=== PATIENT | female | born 1955 | race Caucasian/White ===

== ENCOUNTER 2017-12-09 16:57 | Inpatient (IN) ==
[2017-12-09 17:23] VITALS: BMI 28.2
--- NOTE | 2017-12-09 17:48 | History & Physical Report ---
History of Present Illness Date: 12/09/17 Chief complaint: N/V, weakness, syncope HPI: Guerda Morrissey is a 61 y/o "brittle" type 1 diabetic who was diagnosed about 15 years ago. She has never been in DKA before. She typically manages her diabetes by assessing carb counts per meal, and her usual dose is 20 units of insulin with meals and 50 units of Lantus at night. Her last A1c was "terrible" b/c her diabetes is out of control. 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 She began noticing increased thirst and frequent urination a few days ago, and she knew that she was starting to get in trouble. She continued on her usual insulin regimen. In the evening of 12/08/17, she became significantly sicker with n/v x 7 times. Her acid reflex has been out of control with all of her recent vomiting. She also has a sore throat from the vomiting. She was extremely dizzy and weak, and felt like she'd pass out. She developed photosensitivity without a headache. She denies having fever, chills, cough/congestion, abdominal pain, constipation, diarrhea, or painful urination. She denies any rashes or known skin infection. She denies shortness of breath. She denies palpitations or heart pain (but her chest hurts secondary to GERD). She denies any unusual bleeding/bruising. Her roommate took her to the [place] ED on 12/09/17. Labs are as follows: Na 128, K 5.4, Cl 93, gap 4, BUN 33, Cr 1.8; WBC 21, hgb 14.8, plt 286; accucheck was "high"; Hgb A1c 11.6% (higher than previous A1c per pt report); Cholesterol 349, trig 342, LDL 59, LDL 223, VLDL 68; lipase 47; urine with 3+ glucose, 3+ ketones, no leuk and no nitrite. CXR was unremarkable. They were able to infuse about 500 mL of fluids and insulin 10 units in a small peripheral site before the vein infiltrated, and then an IO was inserted into her right humerus. Dr. Ray was contacted and the patient was transferred to [facility] CCU for inpatient admission for DKA. On arrival to [facility] her blood glucose was detectable at 467. A midline was successfully inserted into her left arm, and the DKA protocol was initiated. Review of Systems All systems PM: 10-point ROS was reviewed, no additional remarkable complaints except - Constitutional Constitutional: Present: as per HPI - EENMT Eyes: Present: requires corrective lenses Mouth/Throat: Present: sore throat - Cardiovascular Cardiovascular: Present: as per HPI Vascular: Absent: pedal edema - Respiratory Respiratory: Present: as per HPI - Gastrointestinal Gastrointestinal: Present: as per HPI - Genitourinary Genitourinary: Present: as per HPI Menstruation: other (has never had estrogen to ovulate) - Musculoskeletal Musculoskeletal: Present: back pain (chronic) - Integumentary/Breasts Integumentary: Present: as per HPI - Neurological Neurological: Present: as per HPI, numbness (plantar surfaces both feet) - Psychiatric Psychiatric: Present: anxiety, depression - Endocrine Endocrine: Present: as per HPI - Hematologic/Lymphatic Hematologic/Lymphatic: Present: as per HPI - Allergic/Immunologic Allergic/Immunologic: Absent: seasonal rhinorrhea Past Medical History Medical History Updates: Type 1 DM with peripheral neuropathy, diagnosed ~46. GERD. HTN. Scoliosis. Chronic back pain Surgical History: Tonsillectomy at age 11 Family History Updates: Both parents are alive and healthy in their 80s. One brother is a "brittle diabetic". 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 Absent: conjunctival icterus, scleral injection ENT: Present: mucous membranes dry Comments: acetone odor on breath - Routine Neck Exam Present: supple - Routine Respiratory Exam Present: CTA bilaterally - Routine Cardiovascular Exam Present: RRR, S1, S2 - Routine Abdominal Exam Present: soft, non distended, non tender. Absent: normoactive bowel sounds ( hypoactive) - Routine Extremities Exam Present: no edema - Routine Skin Exam Present: intact, dry, pallor, warm - Routine Neurological Exam Present: alert, oriented X3, CN II-XII intact, moving all extremities, normal speech. Absent: facial asymmetry - Routine Psychiatric Exam Present: normal thought process, cooperative Results - Labs CBC & Chem 7: 12/09/17 18:17 Assessment and Plan (1) DKA (diabetic ketoacidoses) Current visit: Yes Status: Acute Assessment and Plan: Assessment DKA with hyponatremia, hyperkalemia Leukocytosis, POA, suspect stress response Dehydration secondary to n/v Elevated creatinine, 1.8 Uncontrolled type 1 DM with peripheral neuropathy, diagnosed ~45; Hgb A1c 11.6% on 12/09/17 Severe GERD HTN Scoliosis Chronic back pain Tobacco use Plan Admit to inpatient status. Consult Dr. Ross on Monday. Check CMP, EKG, Trop x3 d/t severe GERD and uncontrolled DM. Will also check TSH , UA. DKA protocol initiated; give 8 units insulin now followed by insulin gtt. IVF: NS at 150 mL/hr; further adjustments pending result of chemistry panel on arrival. Midline placed on admission to left arm. Initiate Protonix IV -- switch to PO when tolerating oral. Diet: NPO with sips and chips. Zofran/Reglan PRN n/v. Consult RT for tobacco cessation information. She does not have any advanced directives. Full code. Care will return to Pee Santiago APRN in [place] upon discharge. Assessment/plan discussed with Dr. Ray. Patient is critically ill. Time spent at bedside and reviewing labs: 50 min. labs from [place] are as follows: Na 128, K 5.4, Cl 93, gap 4, BUN 33, Cr 1.8 ; WBC 21, hgb 14.8, plt 286; accucheck was "high"; Hgb A1c 11.6% (higher than previous A1c per pt report); Cholesterol 349, trig 342, LDL 59, LDL 223, VLDL 68 ; lipase 47; urine with 3+ glucose, 3+ ketones, no leuk and no nitrite. CXR was unremarkable. DVT Prophylaxis: SCD's GI Prophylaxis: Protonix Resuscitation Status: Full Code - Physician Narrative Physician: Jody Ray MD Narrative: Date: 12/09/17 Time: 2009 I have independently evaluated and examined this patient. I reviewed the chart, the patient's history, and the CARPET FINISHING SUPERVISOR/PA's documented findings as above. We discussed and formulated the assessment and plan as above with additions as below: Guerda was seen shortly after arrival. She reports feeling awful for several days with polyuria, polydipsia, increasing nausea culminating in multiple episodes of emesis yesterday and today with associated worsening reflux. No symptoms to suggest underlying infection described including pelvic pain or vaginal discharge. Anxious female, who small respirations not present at time of my assessment a little before 6 PM. Guerda give herself 40 units of Humalog SQ this morning when she recognized high blood sugar by glucometer and subsequently presented to the emergency room. Lantus was taken yesterday evening. Home insulin regimen reported to be 20 units of Humalog 3 times a day, 50 units of Lantus at bedtime. Afebrile, hemodynamically stable Respirations nonlabored, good airflow, breath sounds clear Regular rhythm, abdomen soft, nontender Neck supple without adenopathy Arms/legs without evidence of cellulitis Sodium 128-139 ([place]-repeat here at 18:15) Potassium 5.4-5.6 Bicarbonate 4-9 Creatinine 1.8-1.1 Glucose ??-[phone] Chest x-ray reported NAD per Dr. Almodovar's verbal report to me prior to transfer. DKA with poorly controlled diabetes; patient typically does not monitor. DKA protocol initiated, will require diabetes education for sick day management in addition to carb counting. Continue Lantus. Endocrine consultation anticipated. Hospital Course Summary Disclaimer: The visit summary below is not to be considered part of the above Progress Note. Hospital Course: 12/09/17 Admit to inpatient status. Consult Dr. Ross on Monday. Check CMP, EKG, Trop x3 d/t severe GERD and uncontrolled DM. Will also check TSH , UA. DKA protocol initiated; give 8 units insulin now followed by insulin gtt. IVF: NS at 150 mL/hr; further adjustments pending result of chemistry panel on arrival. Midline placed on admission to left arm. Initiate Protonix IV -- switch to PO when tolerating oral. Diet: NPO with sips and chips. Zofran/Reglan PRN n/v. Consult RT for tobacco cessation information. She does not have any advanced directives. Full code.
[2017-12-09] MEDS ORDERED: SENNA + DOCUSATE TABLET PO PRN (18:01)
[2017-12-09] MEDS ORDERED: NICOTINE 14 MG PATCH TD PRN (18:01)
[2017-12-09] MEDS ORDERED: METOCLOPRAMIDE 10mg/2ml INJECTION IVP PRN (18:01)
[2017-12-09] MEDS ORDERED: ACETAMINOPHEN 325 MG TABLET PO PRN (18:01)
[2017-12-09] MEDS ORDERED: INSULIN REGULAR, HUMAN 100 UNIT/ML INJECTION IVP ONE (18:06)
[2017-12-09] MEDS ORDERED: MAG-AL + SIM ORAL LIQUID 30ml PO PRN (18:06)
[2017-12-09] MEDS ORDERED: CALCIUM CARBONATE Chewable 500mg TABLET PO PRN (18:06)
[2017-12-09] MEDS ORDERED: DEXTROSE 50% SYRINGE 50ml (1 AMP) IVP PRN (18:06)
[2017-12-09] MEDS ORDERED: NS 1,000 ML IV SCH (18:15)
[2017-12-09] MEDS: ONDANSETRON 4 MG/2 ML INJECTION IVP PRN (18:35)
[2017-12-09] MEDS: PANTOPRAZOLE 40 MG INJECTION IVP SCH (19:45)
[2017-12-09] MEDS: INSULIN REGULAR, HUMAN 100 UNIT in NS 100 ML IV PRN (19:50)
[2017-12-09] MEDS: INSULIN GLARGINE 100unit/ml INJECTION SQ SCH (20:50)
[2017-12-09] MEDS: POTASSIUM CHLORIDE INJ 20 MEQ in NS 1,000 ML IV SCH (21:39)
[2017-12-09] MEDS: MORPHINE SULFATE 2mg INJECTION IVP PRN (21:47)
[2017-12-10] MEDS: POTASSIUM CHLORIDE INJ 20 MEQ in D5NS 1,000 ML IV SCH ×2 (00:23→07:14)
[2017-12-10] MEDS: ONDANSETRON 4 MG/2 ML INJECTION IVP PRN ×2 (01:13→04:52)
[2017-12-10] MEDS: QUETIAPINE 200 MG TABLET PO SCH ×2 (01:18→20:28)
[2017-12-10] MEDS: POTASSIUM CHLORIDE INJ 20 MEQ, POTASSIUM PHOSPHATE (mEq) 20 MEQ in D5NS 1,000 ML IV SCH ×2 (06:23→22:37)
[2017-12-10] MEDS: INSULIN REGULAR, HUMAN 100 UNIT in NS 100 ML IV PRN (07:11)
[2017-12-10] MEDS: POTASSIUM CHLORIDE INJ 20 MEQ in NS 1,000 ML IV SCH (07:14)
[2017-12-10] MEDS: PANTOPRAZOLE 40 MG INJECTION IVP SCH (10:49)
--- NOTE | 2017-12-10 14:10 | Progress Note ---
- Date 12/10/17 Subjective: Guerda has slept all morning and complained of fatigue when I woke her to see her a few minutes ago. She describes feeling feverish overnight although temperatures have been consistently normal. She denies dyspnea or cough, has had no difficulty urinating, and has had no nausea or abdominal pain. She's not yet eaten but is willing to try liquids at this time. She's concerned that she is too weak to sit up. She is complaining of headache but denied generalized myalgias. Blood sugars improving progressively overnight on the insulin drip which is now 5 units per hour; she remains on IV fluids with D5 1/2NS with potassium. Nursing reported no problems overnight. Patient wants to know who she needs to see to get an insulin pump. Objective Vital signs: Temperature 97.5 F 12/10/17 00:00 Pulse Rate 88 12/10/17 12:00 Respiratory Rate 13 12/10/17 09:00 Blood Pressure 121/56 12/10/17 09:00 Pulse Oximetry 95 -RA 12/10/17 09:00 I/O 1998/950 NAD, drowsy, speech slightly mumbled Conjugate gaze, EOMI, oropharynx clear although membranes are slightly dry Respirations nonlabored, good airflow, breath sounds clear Regular rhythm, S1-S2 Abdomen soft, moderately obese, nontender, bowel sounds present Extremities without edema Weakly moves all extremities symmetrically-requires encouragement to reposition herself No evidence of cellulitis on skin surfaces of the arms or below the knees Rhythm: Normal Sinus Rhythm Height/Weight/BMI: Height 1.7 m Weight 82.8 kg Body Mass Index 28.2 Results - Labs CBC & Chem 7: 12/10/17 01:05 12/10/17 13:18 Labs: S75 B1 L24 Blood sugars 150-196 since 6 AM this morning Troponin <0.0123 Phosphorus 2.6, magnesium 2.1 - ECG Data Tracing #1 I reviewed this ECG and interpreted as documented below: (sinus rhythm, diffuse T-wave flattening) Assessment and Plan (1) DKA (diabetic ketoacidoses) Current visit: Yes Status: Acute Assessment and Plan: Assessment DKA with hyponatremia, hyperkalemia Leukocytosis, POA, suspect stress response Dehydration secondary to n/v Elevated creatinine, 1.8 Uncontrolled type 1 DM with peripheral neuropathy, diagnosed ~45; Hgb A1c 11.6% on 12/09/17 Severe GERD HTN Scoliosis Chronic back pain Tobacco use Plan: Hyponatremia, hyperkalemia, and metabolic acidosis in conjunction with hyperglycemia have subsided with fluid replacement and insulin administration. Patient is excessively drowsy today but is beginning to take liquids orally. IV D5 discontinued, insulin drip rate decreased in anticipation of discontinuing insulin drip in the next 1-2 hours and resuming short acting insulin subcutaneous. Home regimen is 20 units Humalog 3 times a day (patient reports carb counting somewhat) and 50 units Lantus at bedtime. Continue 50 units Lantus-given yesterday evening; given anticipated dietary modifications while hospitalized will start with 10 units Humalog 3 times a day and modify as needed. Diabetes education consult tomorrow, nutrition consult tomorrow. Consult Dr. Ross tomorrow as well-patient asking about an insulin pump. Heartburn resolved, denies chest pain and enzymes/EKG unremarkable. Convert to oral PPI. Blood pressure stable thus far, atenolol remains on hold. Seroquel resumed yesterday evening. Supplemental history provided by nursing. DVT Prophylaxis: SCD's, Lovenox GI Prophylaxis: Protonix Resuscitation Status: Full Code - Physician Narrative Narrative: Date: 12/10/17 Time: 1407 Hospital Course Summary Disclaimer: The visit summary below is not to be considered part of the above Progress Note. Hospital Course: 12/09/17 Admit to inpatient status. Consult Dr. Ross on Monday. Check CMP, EKG, Trop x3 d/t severe GERD and uncontrolled DM. Will also check TSH , UA. DKA protocol initiated; give 8 units insulin now followed by insulin gtt. IVF: NS at 150 mL/hr; further adjustments pending result of chemistry panel on arrival. Midline placed on admission to left arm. Initiate Protonix IV -- switch to PO when tolerating oral. Diet: NPO with sips and chips. Zofran/Reglan PRN n/v. Consult RT for tobacco cessation information. She does not have any advanced directives. Full code. 12/10/17 Hyponatremia, hyperkalemia, and metabolic acidosis in conjunction with hyperglycemia have subsided with fluid replacement and insulin administration. Patient is excessively drowsy today but is beginning to take liquids orally. IV D5 discontinued, insulin drip rate decreased in anticipation of discontinuing insulin drip in the next 1-2 hours and resuming short acting insulin subcutaneous. Home regimen is 20 units Humalog 3 times a day (patient reports carb counting somewhat) and 50 units Lantus at bedtime. Continue 50 units Lantus-given yesterday evening; given anticipated dietary modifications while hospitalized will start with 10 units Humalog 3 times a day and modify as needed. Diabetes education consult tomorrow, nutrition consult tomorrow. Consult Dr. Ross tomorrow as well-patient asking about an insulin pump. Heartburn resolved, denies chest pain and enzymes/EKG unremarkable. Convert to oral PPI. Blood pressure stable thus far, atenolol remains on hold. Seroquel resumed yesterday evening.
[2017-12-10] MEDS: 1/2 NS with KCL 20mEq 1,000 ML IV SCH ×2 (14:30→21:56)
[2017-12-10] MEDS ORDERED: INSULIN ASPART 100unit/ml INJECTION SQ SCH (17:30)
[2017-12-10] MEDS ORDERED: INSULIN ASPART 100unit/ml INJECTION SQ ONE (18:36)
[2017-12-10] MEDS: INSULIN GLARGINE 100unit/ml INJECTION SQ SCH (20:28)
[2017-12-10] MEDS: INSULIN ASPART 100unit/ml INJECTION SQ PRN ×2 (20:29→23:19)
[2017-12-10] MEDS: MORPHINE SULFATE 2mg INJECTION IVP PRN (20:31)
[2017-12-11] MEDS: 1/2 NS with KCL 20mEq 1,000 ML IV SCH (06:03)
[2017-12-11] MEDS: PANTOPRAZOLE 40 MG TABLET PO SCH (06:04)
[2017-12-11] MEDS: INSULIN ASPART 100unit/ml INJECTION SQ PRN (06:09)
[2017-12-11] MEDS: SALINE FLUSH 10ml SYRINGE IV PRN ×2 (06:14→17:37)
[2017-12-11] MEDS: INSULIN ASPART 100unit/ml INJECTION SQ SCH ×3 (09:08→17:36)
[2017-12-11] MEDS: ENOXAPARIN 40 MG/0.4 ML INJECTION SQ SCH (09:08)
[2017-12-11] MEDS: MORPHINE SULFATE 2mg INJECTION IVP PRN (09:09)
[2017-12-11] MEDS ORDERED: IBUPROFEN 400 MG TABLET PO PRN (09:36)
[2017-12-11] MEDS ORDERED: HYDROCODONE/APAP 7.5 MG/325 MG TABLET PO PRN (11:42)
--- NOTE | 2017-12-11 12:08 | Progress Note ---
- Date 12/11/17 Subjective: Guerda complains of sore throat, headache, and generalized weakness. She reports that headaches are uncommon as is weakness reporting that she usually works 16 hours a day. She generally only eats when she is hungry and her meal pattern is unpredictable due to her work schedule. She is chronically lightheaded when she gets up and moves around and reported lightheadedness when she sat up in bed today. She denied nausea, vomiting, diarrhea, dysuria, cough, or sputum production. Nursing reported brief episode of tachycardia overnight lasting 4.2 seconds-possible atrial fibrillation-spontaneously converted to sinus rhythm. Objective Vital signs: Temperature 98.1 F 12/11/17 08:42 Pulse Rate 78 12/11/17 11:01 Respiratory Rate 11 12/11/17 11:01 Blood Pressure 140/64 H 12/11/17 11:00 Pulse Oximetry 96-RA 12/11/17 11:01 I/O 3099/300 Fatigued appearing, flat affect, NAD Conjunctiva clear, sclera anicteric, EOMI, oropharynx clear Neck supple and without adenopathy Respirations nonlabored, good airflow, wrist sounds clear Regular rhythm, S1-S2 Abdomen soft, nontender, bowel sounds present Extremities without edema Moves all extremities symmetrically but slowly Rhythm: Normal Sinus Rhythm Height/Weight/BMI: Height 1.7 m Weight 84.2 kg Body Mass Index 28.2 Results - Labs CBC & Chem 7: 12/11/17 04:09 12/11/17 04:09 Labs: Magnesium 1.9, phosphorus 2.6 Blood sugars have ranged from 135-277 over the past 24 hours Assessment and Plan (1) DKA (diabetic ketoacidoses) Current visit: Yes Status: Acute Assessment and Plan: Assessment DKA with hyponatremia, hyperkalemia Leukocytosis, POA, suspect stress response Dehydration secondary to n/v Elevated creatinine, 1.8 Uncontrolled type 1 DM with peripheral neuropathy, diagnosed ~45; Hgb A1c 11.6% on 12/09/17 Severe GERD HTN Scoliosis Chronic back pain Tobacco use Headache Tachyarrhythmia Plan: Metabolic abnormalities have resolved; diabetes education initiated. Dr. Ross saw the patient this morning, scheduled short acting insulin increased to 16 units in conjunction with continued Lantus 50 units at bedtime. Stable to transfer out of ICU. Blood pressure remains elevated, atenolol resumed starting tonight and will initiate lisinopril at 10 mg daily for combined blood pressure control and renal protection. Low-dose aspirin initiated. Lipids ordered for the morning, patient would likely benefit from statin therapy. Ibuprofen added for headache; patient encouraged to get out of bed and ambulate as I anticipate this will help with headache and weakness. Brief episode of tachycardia overnight, will review rhythm strips when available , continue telemetry. Seroquel dose confirmed with the patient. DVT Prophylaxis: Lovenox Resuscitation Status: Full Code - Physician Narrative Narrative: Date: 12/11/17 Time: 1204 Hospital Course Summary Disclaimer: The visit summary below is not to be considered part of the above Progress Note. Hospital Course: 12/09/17 Admit to inpatient status. Consult Dr. Ross on Monday. Check CMP, EKG, Trop x3 d/t severe GERD and uncontrolled DM. Will also check TSH , UA. DKA protocol initiated; give 8 units insulin now followed by insulin gtt. IVF: NS at 150 mL/hr; further adjustments pending result of chemistry panel on arrival. Midline placed on admission to left arm. Initiate Protonix IV -- switch to PO when tolerating oral. Diet: NPO with sips and chips. Zofran/Reglan PRN n/v. Consult RT for tobacco cessation information. She does not have any advanced directives. Full code. 12/10/17 Hyponatremia, hyperkalemia, and metabolic acidosis in conjunction with hyperglycemia have subsided with fluid replacement and insulin administration. Patient is excessively drowsy today but is beginning to take liquids orally. IV D5 discontinued, insulin drip rate decreased in anticipation of discontinuing insulin drip in the next 1-2 hours and resuming short acting insulin subcutaneous. Home regimen is 20 units Humalog 3 times a day (patient reports carb counting somewhat) and 50 units Lantus at bedtime. Continue 50 units Lantus-given yesterday evening; given anticipated dietary modifications while hospitalized will start with 10 units Humalog 3 times a day and modify as needed. Diabetes education consult tomorrow, nutrition consult tomorrow. Consult Dr. Ross tomorrow as well-patient asking about an insulin pump. Heartburn resolved, denies chest pain and enzymes/EKG unremarkable. Convert to oral PPI. Blood pressure stable thus far, atenolol remains on hold. Seroquel resumed yesterday evening. 12/11/17 Metabolic abnormalities have resolved; diabetes education initiated. Dr. Ross saw the patient this morning, scheduled short acting insulin increased to 16 units in conjunction with continued Lantus 50 units at bedtime. Stable to transfer out of ICU. Blood pressure remains elevated, atenolol resumed starting tonight and will initiate lisinopril at 10 mg daily for combined blood pressure control and renal protection. Low-dose aspirin initiated. Lipids ordered for the morning, patient would likely benefit from statin therapy. Ibuprofen added for headache; patient encouraged to get out of bed and ambulate as I anticipate this will help with headache and weakness. Seroquel dose confirmed with the patient.
[2017-12-11] MEDS: LISINOPRIL 10 MG TABLET PO SCH (13:25)
[2017-12-11] MEDS ORDERED: NICOTINE PATCH REMOVAL TD PRN (15:42)
--- NOTE | 2017-12-11 17:26 | Consultation ---
DATE OF CONSULT 12/11/2017 REASON FOR CONSULTATION Uncontrolled diabetes. This 61-year-old female was admitted after a day or two of nausea and vomiting at home. She thinks she may have had a urinary tract infection the week prior to this. She has a history of type 1 diabetes going back 20 years without any definite diabetic complications that she knows of. She admits to very poor control of her blood sugars and states that they were frequently over 500. When she was seen in the emergency department she was found to be in diabetic ketoacidosis with a bicarb of 9 and anion gap of 27. Glucose was 434. She had been taking Humalog 20 units with meals which she usually only has twice a day plus Lantus 50 units h.s. She was admitted to the CCU and placed on the DKA protocol. Her ketoacidosis resolved fairly swiftly. By eight hours after admission her anion gap had closed to 14 with bicarb up to 19 and glucose down to 185. Later that day she was started back on subcutaneous insulin with her full dose of 50 units of Lantus at bedtime but only 10 units of Humalog with her meals. She did receive supplemental sliding scale insulin when her postprandial glucose levels roby higher. ALLERGIES Diazepam. PAST MEDICAL HISTORY Hypertension. Acid reflux. Scoliosis. FAMILY HISTORY Type 1 diabetes mellitus in her brother. SOCIAL HISTORY The patient smokes three cigarettes per day. She does not drink alcohol. REVIEW OF SYSTEMS Remarkable for fatigue, weakness and headaches. She denies blurry vision. She does have some dizziness. Mouth is dry. Eyes are dry. She reported some shortness of breath and dyspnea on exertion but no cough or wheeze. She has had no diarrhea or constipation and the nausea has completely resolved. She only had one episode of emesis after arriving at the hospital. She has had polyuria and nocturia. She has low back pain. She also has peripheral neuropathy. PHYSICAL EXAMINATION VITAL SIGNS: Afebrile. Blood pressure 178/83, pulse 83, respirations 13. GENERAL: Well-developed, overweight female in no acute distress. HEENT: Remarkable for dry lips but moist oral mucosa. NECK: Without thyromegaly. LUNGS: Clear. HEART: Regular rate and rhythm. ABDOMEN: Normal bowel sounds with no tenderness. EXTREMITIES: 2+ pulses. No peripheral edema. LYMPHATICS: Without lymphadenopathy. NEUROLOGIC: Absent light touch in the right foot but normal in the left except beneath the fifth metatarsal head. LABORATORY Anion gap now 7 with CO2 21 and glucose 141. BUN 12, creatinine 0.6. HbA1c 11.6 %. TSH 1.06. ALT 15. ASSESSMENT 1. Diabetic ketoacidosis, resolved. 2. Type 1 diabetes mellitus, uncontrolled. 3. Long-acting current use of insulin. 4. Hypertension, uncontrolled. 5. Peripheral neuropathy, moderate. 6. Tobacco abuse, mild. RECOMMENDATIONS The patient will need a larger dose of rapid-acting insulin for meals. She probably does not [id number] calories while in the hospital so we will lower her diet to 1800 calories. She should be seen by the diabetic educator, which has already been ordered. Following dismissal home she should have followup to get her blood sugars titrated into better control. For now we will place her on 16 units of NovoLog t.i.d. with meals which will represent roughly a 50% increase in her daily insulin intake over and above what she was on prior to hospital admission. Thank you very much for asking me to assist in caring for this patient with uncontrolled diabetes. I will follow her with you while she remains in the hospital. BELLE
[2017-12-11] MEDS ORDERED: ATENOLOL 25 MG TABLET PO SCH (21:00)
[2017-12-11] MEDS: INSULIN GLARGINE 100unit/ml INJECTION SQ SCH (21:51)
[2017-12-11] MEDS: QUETIAPINE 200 MG TABLET PO SCH (21:51)
[2017-12-12] MEDS: INSULIN ASPART 100unit/ml INJECTION SQ PRN ×2 (01:16→13:05)
[2017-12-12] MEDS: PANTOPRAZOLE 40 MG TABLET PO SCH (06:03)
--- NOTE | 2017-12-12 07:55 | Endocrinology Progress Note ---
Subjective Principal diagnosis: Type 1 diabetes mellitus Interval history: Restless sleep last night. Got mildly hypoglycemic (67) after lunch, then higher after supper. No nausea or vomiting. Exam Vital signs: Temperature 97.2 F 12/12/17 05:00 Pulse Rate 69 12/12/17 05:00 Respiratory Rate 18 12/12/17 05:00 Blood Pressure 137/86 12/12/17 05:00 Pulse Oximetry 97 12/12/17 05:00 Inpatient Medications: Generic Name Dose Route Start Last Admin Trade Name Freq PRN Reason Stop Dose Admin Acetaminophen 325 - 650 mg 12/09/17 18:01 12/10/17 12:03 Tylenol PO 650 mg Q5H PRN Administration Discomfort Hydrocodone Bitart/Acetaminophen 1 tab 12/11/17 11:42 [place] 7.5/325 PO Q4H PRN Pain Al Hydroxide/Mg Hydroxide 30 ml 12/09/17 18:06 Maalox Plus PO Q3H PRN Indigestion Aspirin 81 mg 12/12/17 09:00 Ecotrin PO DAILY HORACE Atenolol 25 mg 12/11/17 21:00 12/11/17 21:51 Tenormin PO 25 mg HS HORACE Administration Calcium Carbonate 1,000 mg 12/09/17 18:06 Tums PO PRN PRN Dyspepsia Dextrose 25 ml 12/09/17 18:06 D50%W IVP O PRN Hypoglycemia Enoxaparin Sodium 40 mg 12/11/17 09:00 12/11/17 09:08 Lovenox SQ 40 mg DAILY HORACE Administration Ibuprofen 400 mg 12/11/17 09:36 12/11/17 12:25 Motrin PO 400 mg Q4H PRN Administration Pain Insulin Aspart 2 - 12 unit 12/11/17 07:45 12/12/17 01:16 Novolog SQ 4 unit SS PRN Administration Hyperglycemia Protocol Insulin Aspart 16 unit 12/11/17 07:48 12/11/17 17:36 Novolog SQ 16 unit TIDWM HORACE Administration Insulin Glargine 50 unit 12/09/17 21:00 12/11/17 21:51 Lantus SQ 50 unit HS HORACE Administration Lisinopril 10 mg 12/11/17 12:35 12/11/17 13:25 Prinivil PO 10 mg DAILY HORACE Administration Magnesium Hydroxide 30 ml 12/09/17 18:01 Mom PO DAILY PRN Constipation Metoclopramide HCl 5 mg 12/09/17 18:01 Reglan IVP Q6H PRN Nicotine 14 mg 12/09/17 18:01 Nicoderm TD DAILY PRN Nicotine 1 removal 12/11/17 15:42 Nicotine Patch Removal TD DAILY PRN Ondansetron HCl 4 mg 12/09/17 18:01 12/10/17 04:52 Zofran IVP 4 mg Q6H PRN Administration Nausea &/or vomiting Pantoprazole Sodium 40 mg 12/11/17 06:30 12/12/17 06:03 Protonix Tab PO 40 mg ACB HORACE Administration Quetiapine Fumarate 400 mg 12/10/17 01:08 12/11/17 21:51 Seroquel PO 400 mg HS HORACE Administration Senna/Docusate Sodium 1 tab 12/09/17 18:01 Senna Plus Tablet PO BID PRN Constipation Sodium Chloride 10 ml 12/11/17 06:13 12/11/17 17:37 Iv Flush IV 10 ml PRN PRN Administration Flushing Discontinued Medications Generic Name Dose Route Start Last Admin Trade Name Freq PRN Reason Stop Dose Admin Sodium Chloride 1,000 mls @ 150 mls/hr 12/09/17 18:15 12/09/17 21:39 Normal Saline IV Infused .Q6H40M HORACE Infusion Insulin Human Regular 100 unit 101 mls @ 8.25 mls/hr 12/09/17 18:06 12/10/17 19:00 / Sodium Chloride IV Infused .[id number] PRN Titration Protocol 0.1 UNIT/KG/HR Potassium Chloride 20 meq/ 1,010 mls @ 150 mls/hr 12/09/17 21:37 12/10/17 07: 14 Sodium Chloride IV Not Given .Q6H44M HORACE Potassium Chloride 20 meq/ 1,010 mls @ 150 mls/hr 12/10/17 00:15 12/10/17 07: 14 Dextrose/Sodium Chloride IV Not Given .Q6H44M HORACE Potassium Chloride 20 meq/ 1,014.5455 mls @ 150 mls/hr 12/10/17 06:00 22:37 Potassium Phosphate 20 meq/ IV Not Given Dextrose/Sodium Chloride .Q6H46M HORACE Potassium Chloride/Sodium Chloride 1,000 mls @ 125 mls/hr 12/10/17 14:30 02/20 12:00 1/2 Ns With Kcl 20meq Premix IV 0 mls/hr .Q8H HORACE Infusion Insulin Aspart 10 unit 12/10/17 17:30 12/10/17 18:39 Novolog SQ Not Given TIDWM HORACE Insulin Aspart 3 - 12 unit 12/10/17 14:22 12/11/17 06:09 Novolog SQ 2 unit SS PRN Administration Hyperglycemia Protocol Insulin Aspart 5 unit 12/10/17 18:36 12/10/17 18:39 Novolog SQ 12/10/17 18:37 5 unit O ONE Administration Insulin Human Regular 8 unit 12/09/17 18:06 12/09/17 18:17 Novolin R 0.1 unit/kg (8 unit) 12/09/17 18:07 8 unit IVP Administration O ONE Morphine Sulfate 2 mg 12/09/17 18:08 12/11/17 09:09 Morphine Sulf 2 Mg Inj IVP 2 mg Q3-4HR PRN Administration Pain Pantoprazole Sodium 40 mg 12/09/17 18:30 12/10/17 10:49 Protonix Iv IVP 40 mg DAILY HORACE Administration - Constitutional no acute distress, well nourished, well developed, obese - Routine HEENT Exam Head: Present: normocephalic, atraumatic Eye: Present: EOMI ENT: Present: mucous membranes moist - Routine Neck Exam Absent: thyromegaly - Routine Respiratory Exam Absent: dyspnea - Routine Cardiovascular Exam Present: RRR - Routine Abdominal Exam Present: soft, normoactive bowel sounds - Routine Extremities Exam Absent: edema - Routine Skin Exam Present: dry, warm - Routine Neurological Exam Present: alert, oriented X3, moving all extremities - Routine Psychiatric Exam Present: normal affect, normal thought process, good insight, good judgment - Additional findings Additional findings: Laboratory Tests 12/11/17 12/11/17 12/11/17 10:42 14:42 15:04 Glucometer 135 67 89 12/11/17 12/11/17 12/12/17 17:14 20:50 01:08 Glucometer 200 165 229 12/12/17 07:12 Glucometer 128 Assessment and Plan (1) Diabetes mellitus type 1, uncontrolled Current visit: Yes Status: Acute Needs less insulin for lunch and more for supper. Change Novolog to 16 u q AM, 14 u q lunch, 18 u q PM AC. May be dismissed on these doses. Should followup in about 2 weeks; she wants to see Brunilda Santiago, which is fine.
[2017-12-12 08:40] VITALS: RESP 20
[2017-12-12] MEDS ORDERED: ASPIRIN *EC* 81 MG TABLET PO SCH (09:00)
[2017-12-12] MEDS: ENOXAPARIN 40 MG/0.4 ML INJECTION SQ SCH (09:35)
[2017-12-12] MEDS: LISINOPRIL 10 MG TABLET PO SCH (09:35)
[2017-12-12] MEDS: INSULIN ASPART 100unit/ml INJECTION SQ SCH (09:42)
[2017-12-12] MEDS ORDERED: INSULIN ASPART 100unit/ml INJECTION SQ SCH ×2 (11:30→17:00)
[2017-12-12 15:30] VITALS: BP 138/69; PULSE 85; TEMP 96.5; O2SAT 95
--- NOTE | 2017-12-12 22:46 | Discharge Summary ---
Discharge Information Date of admission: 12/09/17 16:57 Anticipated date of discharge: 12/12/17 Attending Physician: Jody Ray MD Primary care physician: Anu Santiago APRN Consults: Inpatient Diabetic Consult [CONS] Routine Diabetic Diagnosis: E10.65 Uncontrolled T1 DM Consulting Provider: Yves Ross Reason For Exam: DKA Dietary Consult [CONS] Routine - Discharge Diagnosis (1) DKA (diabetic ketoacidoses) Status: Acute DKA with hyponatremia, hyperkalemia Leukocytosis, POA, suspect stress response Dehydration secondary to n/v Elevated creatinine, 1.8 Diabetes mellitus, type I, uncontrolled with peripheral neuropathy, A1c 11.6% on 12/09/17 Severe GERD HTN Scoliosis Chronic back pain Tobacco use Headache Tachyarrhythmia Cerumen impaction, bilateral - Laboratory Labs: On admission 12/09/17: Sodium 136, potassium 5.6, bicarbonate 9, creatinine 1.1, glucose 434 (initial labs done at outside facility, these labs following initial insulin treatment) liver enzymes and troponin unremarkable TSH 1.06 on 12/09/17 On 12/10/17: WBC 20.7, hemoglobin 14.1; HCO3 19, fasting glucose 185 On 12/12/17: Total cholesterol 215, triglycerides 281, LDL 119, HDL 40 12/11/17 04:09 12/12/17 04:20 History of Present Illness HPI: Guerda Morrissey is a 61 y/o "brittle" type 1 diabetic who was diagnosed about 15 years ago. She has never been in DKA before. She typically manages her diabetes by assessing carb counts per meal, and her usual dose is 20 units of insulin with meals and 50 units of Lantus at night. Her last A1c was "terrible" b/c her diabetes is out of control. 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 She began noticing increased thirst and frequent urination a few days ago, and she knew that she was starting to get in trouble. She continued on her usual insulin regimen. In the evening of 12/08/17, she became significantly sicker with n/v x 7 times. Her acid reflex has been out of control with all of her recent vomiting. She also has a sore throat from the vomiting. She was extremely dizzy and weak, and felt like she'd pass out. She developed photosensitivity without a headache. She denies having fever, chills, cough/congestion, abdominal pain, constipation, diarrhea, or painful urination. She denies any rashes or known skin infection. She denies shortness of breath. She denies palpitations or heart pain (but her chest hurts secondary to GERD). She denies any unusual bleeding/bruising. Her roommate took her to the [place] ED on 12/09/17. Labs are as follows: Na 128, K 5.4, Cl 93, gap 4, BUN 33, Cr 1.8; WBC 21, hgb 14.8, plt 286; accucheck was "high"; Hgb A1c 11.6% (higher than previous A1c per pt report); Cholesterol 349, trig 342, LDL 59, LDL 223, VLDL 68; lipase 47; urine with 3+ glucose, 3+ ketones, no leuk and no nitrite. CXR was unremarkable. They were able to infuse about 500 mL of fluids and insulin 10 units in a small peripheral site before the vein infiltrated, and then an IO was inserted into her right humerus. Dr. Ray was contacted and the patient was transferred to [facility]U for inpatient admission for DKA. On arrival to [facility] her blood glucose was detectable at 467. A midline was successfully inserted into her left arm, and the DKA protocol was initiated. Objective Vital signs: Temperature 96.5 F L 12/12/17 15:28 Pulse Rate 85 12/12/17 15:28 Respiratory Rate 20 12/12/17 15:28 Blood Pressure 138/69 12/12/17 15:28 Pulse Oximetry 95 12/12/17 15:28 NAD, alert Tympanic membranes cerumen occluded bilaterally, oropharynx clear Respirations nonlabored, good airflow, breath sounds clear Regular rhythm, S1 and S2 Abdomen soft, nontender, bowel sounds present Rhythm: Normal Sinus Rhythm Height/Weight/BMI: Height 1.7 m Weight 84.1 kg Body Mass Index 28.2 Hospital Course This is a general summary of the patient's hospital course. For more details refer to the complete medical record. Hospital course: 12/09/17 Admit to inpatient status. Consult Dr. Ross on Monday. Check CMP, EKG, Trop x3 d/t severe GERD and uncontrolled DM. Hgb A1c 11.6% on 12/09/17 DKA protocol initiated; give 8 units insulin now followed by insulin gtt. IVF: NS at 150 mL/hr; further adjustments pending result of chemistry panel on arrival. Midline placed on admission to left arm. Initiate Protonix IV -- switch to PO when tolerating oral. Diet: NPO with sips and chips. Zofran/Reglan PRN n/v. Consult RT for tobacco cessation information. She does not have any advanced directives. Full code. 12/10/17 Hyponatremia, hyperkalemia, and metabolic acidosis in conjunction with hyperglycemia have subsided with fluid replacement and insulin administration. Patient is excessively drowsy today but is beginning to take liquids orally. IV D5 discontinued, insulin drip rate decreased in anticipation of discontinuing insulin drip in the next 1-2 hours and resuming short acting insulin subcutaneous. Home regimen is 20 units Humalog 3 times a day (patient reports carb counting somewhat) and 50 units Lantus at bedtime. Continue 50 units Lantus-given yesterday evening; given anticipated dietary modifications while hospitalized will start with 10 units Humalog 3 times a day and modify as needed. Diabetes education consult tomorrow, nutrition consult tomorrow. Consult Dr. Ross tomorrow as well-patient asking about an insulin pump. Heartburn resolved, denies chest pain and enzymes/EKG unremarkable. Convert to oral PPI. Blood pressure stable thus far, atenolol remains on hold. Seroquel resumed yesterday evening. 12/11/17 Metabolic abnormalities have resolved; diabetes education initiated. Dr. Ross saw the patient this morning, scheduled short acting insulin increased to 16 units in conjunction with continued Lantus 50 units at bedtime. Stable to transfer out of ICU. Blood pressure remains elevated, atenolol resumed starting tonight and will initiate lisinopril at 10 mg daily for combined blood pressure control and renal protection. Low-dose aspirin initiated. Lipids ordered for the morning, patient would likely benefit from statin therapy. Ibuprofen added for headache; patient encouraged to get out of bed and ambulate as I anticipate this will help with headache and weakness. Seroquel dose confirmed with the patient. 12/12/17 Patient continues to complain of her throat feeling constricted and her ears feeling itchy. Otherwise tolerating oral intake well; generally feels fatigued but ambulating without difficulty and denies dyspnea. Minor adjustments in short acting insulin made this morning by Dr. Ross-16 with breakfast, 14 with lunch, 18 with supper. Lantus unchanged-50 units daily Blood pressure remains borderline high; use of LEONARDA inhibitor for renal protection discussed-lisinopril increased to 20 mg daily Aspirin added to medical regimen for cardioprotection; recommended statin therapy but with changes made thus far will defer to outpatient initiation. Patient reports having earwax drops at home to use to soften wax prior to office visit so ears can be irrigated on follow-up. Stable for discharge with plans to follow-up with primary provider in the next 1 -2 days prior to return to work and Dr. Ross in 2 weeks. Need to monitor blood sugars regularly, follow up with physicians, and modify diet discussed. Time spent with patient: discharge greater than 30 minutes Resuscitation Status: Full Code Discharge Plan - Discharge Disposition Discharge Date: 12/12/17 Disposition: 01 Discharged Home, Self-Care *Condition: Stable Reason For Visit (Visit label in EMR): DKA - Discharge Medications *Discharge Medications: New Lisinopril [Prinivil] 20 mg PO DAILY #30 tab Insulin Lispro [Humalog] 16 unit SQ ACB #1 vial Insulin Lispro [Humalog] 14 unit SQ ACL #1 vial Insulin Lispro [Humalog] 18 unit SQ ACS #1 vial Aspirin *EC* [Ecotrin] 81 mg PO DAILY tab Continue Atenolol [Tenormin] 1 tab PO HS Insulin Glargine [Lantus] 50 units SQ HS Quetiapine Fumarate [Seroquel] 400 mg PO HS Discontinued Insulin Lispro [Humalog] 20 units SQ WM - Discharge Packet/Instructions *Diet: Diabetic, low-salt, low-fat *Activity: As tolerate *Pain Management/Treatment: Tylenol or ibuprofen as per package instructions *Wound Care: Not applicable Additional Instructions: 1. Monitor your blood sugars 4 times daily-when you first get up and 2 hours after each meal. 2. Continue Lantus 50 units daily 3. Humalog changed to explain units with breakfast, 14 units with lunch, and 18 units with supper. 4. Schedule follow-up appointment with Anu Santiago as soon as possible 5. Schedule follow-up appointment with Dr. Ross 6. Use ear wax drops tonight to soften wax to make it easier to irrigate at office follow- up. 7. Start taking a baby aspirin every day for heart protection and lisinopril 20 mg daily to help control your blood pressure and to protect your kidneys. Her cholesterol is also too high for diabetic and she should talk to Anu Santiago about starting a cholesterol-lowering medication in the near future. *Expected Signs/Symptoms: Generalized achiness after experiencing DKA, sore throat after vomiting. *Notify Physician if: Blood sugars are frequently above 300 or less than 80 *During Business Hours Contact: Anu Santiago or Dr. Ross *After Business Hours Contact: Call [facility] at [phone] and ask that the on-call physician be paged *Pending Lab/Results: No Pending Lab - Referrals/Follow Up *Referrals/Follow Up: Anu Santiago, CHIEF ENGINEER RESEARCH [Advanced Practice Nurse] - (1-2 days) Yves Ross MD [Physician] - 2 Weeks - Patient Handouts Patient Handouts: Diabetic Ketoacidosis (GEN) - Dismissal Complete Discharge Instructions are:: Complete Physician Narrative - Narrative Attestation Narrative: Date: 12/12/17 Time: [id number]
[2017-12-13] MEDS ORDERED: INSULIN ASPART 100unit/ml INJECTION SQ SCH (06:30)
== END 2017-12-12 16:40 | disposition home or self-care (01) | DRG 638 ==
LOC: CCU 16:57 → MED 12-11 13:40
PROVIDERS: ADMIT Internal Medicine; ATTEND Internal Medicine